=== PATIENT | male | born 1970 | race Caucasian/White ===

== ENCOUNTER → 2019-09-19 | Outpatient (CLI) | payer BC ==
--- NOTE | 2019-09-19 20:26 | CONS ---
CONSULTATION DATE OF SERVICE: 09/19/2019 This patient is a 49-year-old gentleman who has been evaluated in the sleep center for possible obstructive sleep apnea-hypopnea syndrome. HISTORY OF PRESENT ILLNESS/SLEEP-WAKE EVALUATION: Patient's usual sleep schedule on working days is from around 8 p.m. until 3:30 a.m. and on weekends from around 10 p.m. until 9:30 a.m. He has problems with falling asleep, has TV set in bedroom, usually sleeps on the back and side positions. According to his , he has loud snoring and he wakes up from sleep up to 6 times with nocturia. In the morning he wakes up tired, worries about his sleep. Zullinger Sleepiness Scale is significantly increased at 14. He may take up to 2 naps a day, usually around 3 p.m. No history of hypnagogic hallucinations, sleep paralysis or cataplexy. PAST MEDICAL HISTORY: Positive for hypertension and low level of vitamin D. PAST SURGICAL HISTORY: Appendectomy. SOCIAL HISTORY: Positive for smoking about one third pack a day for 10 years; quit 14 years ago. Alcohol consumption occasional. FAMILY HISTORY: Hyperlipidemia, snoring, diabetes, acid reflux. REVIEW OF SYSTEMS: Multiple awakenings from sleep. Sleepiness during the day. PHYSICAL EXAMINATION: GENERAL: A pleasant gentleman without distress. VITAL SIGNS: BP 123/78, HR 65, RR 16, height 5 feet 11-1/4 inches, weight 267.4 pounds, body mass index 37.0, temperature 98.5, oxygen saturation at room air 96%. HEENT: PERRLA, EOMI. Evaluation of oropharynx showed tongue protrudes midline. Extremely low position of soft palate. Mallampati IV. Nose asymmetric. Restriction of nasal breathing. NECK: Supple. No JVD. Thyroid is not palpable. Wide neck; 20 inches in circumference. LUNGS: Clear to percussion and to auscultation. Good air exchange. No wheezing or rhonchi. HEART: S1, S2 regular. No murmurs, gallops or rubs. ABDOMEN: Obese. EXTREMITIES: No clubbing or cyanosis. FIRE EATER: Awake, alert, and oriented X3. Cranial nerves 2 to 7 intact. There is no fasciculation or atrophy. noted. No focal deficits observed. IMPRESSION: 1. Loud snoring, multiple awakenings from sleep, extremely low position of soft palate, Mallampati IV, extremely wide neck, 20 inches in circumference, sleepiness, Zullinger Sleepiness Scale increased at 14; obstructive sleep apnea-hypopnea syndrome. 2. Obesity. 3. Hypertension. 4. Low level of vitamin D. 5. Restriction of nasal breathing; possibly nasal septum deviation. 6. Status post appendectomy. PLAN: 1. Home sleep apnea test for evaluation of patient's breathing during sleep. 2. CPAP/BiPAP titration if sleep study confirms obstructive sleep apnea-hypopnea syndrome. 3. Preferable position during sleep on the side. 4. No driving if patient feels any sleepiness. 5. I will see patient for follow up visit to explain results of testing and following plan. Thank you very much for referring this patient for consultation. Sincerely, Isac Barba MD, PhD, FAASM Diplomat of [employer] [employer] [facility] [place] MMODL / IJN: [id number] /
== END | disposition home or self-care (01) ==
LOC: SLEEP 14:38
PROVIDERS: ATTEND Internal Medicine
DX: G47.33 Obstructive sleep apnea (adult) (pediatric) (principal); E66.9 Obesity, unspecified; I10 Essential (primary) hypertension; E55.9 Vitamin D deficiency, unspecified; Z68.37 Body mass index [BMI] 37.0-37.9, adult; Z90.49 Acquired absence of other specified parts of digestive tract; Z87.891 Personal history of nicotine dependence
CPT/HCPCS: 99211